=== PATIENT | female | born 1970 | race Two or more races ===

== ENCOUNTER 2016-12-26 09:09 | Emergency (ER) | payer OTHER ==
[2016-12-26 09:31] VITALS: BMI 31.8
--- NOTE | 2016-12-26 09:35 | PDOC ---
History of Present Illness - General History Source: Patient Exam Limitations: No Limitations - History of Present Illness Initial Comments: 12/26/16 10:05 The patient is a 46 year old female with a significant past medical history of hypertension, lumbar disc disease, and s/p [place] distal LAD dissection in Aug 2014 (on Aspirin), who is brought by EMS and presents to the ER with back pain for several hours. Patient states she woke up today in her usual state of health. She states she had a sudden onset of right lower back pain shooting down the right leg. Patient states she fell today as a result of being unstable on her right leg. She says she was unable to move her right foot. She also reports feeling pain in the right rivera, where she previously had surgery three years ago. Patient denies taking any pain medication. Denies chest pain, shortness of breath Denies nausea, vomiting Denies paresthesia, numbness Denies abdominal pain Denies dizziness Denies loss of consciousness <Alix Wilkerson - Last Filed: 12/26/16 12:03> <Shayla Braxton - Last Filed: 12/26/16 15:57> - General Chief Complaint: Lightheaded Stated Complaint: DIZZINESS Time Seen by Provider: 12/26/16 09:30 Past History <Alix Wilkerson - Last Filed: 12/26/16 12:03> - Past Medical History Cardiac Disorders: Yes ([place]) Psychiatric Problems: Yes (Major Depressive Disorder) Other medical history: Lumbar disc disorder, varicose veins - Psycho/Social/Smoking Cessation Hx Anxiety: No Suicidal Ideation: No Smoking Status: No Smoking History: Never smoked Have you smoked in the past 12 months: No Number of Cigarettes Smoked Daily: 0 Information on smoking cessation initiated: No Hx Alcohol Use: No Drug/Substance Use Hx: No Substance Use Type: None <Shayla Braxton - Last Filed: 12/26/16 15:57> - Past Medical History Allergies/Adverse Reactions: Allergies Allergy/AdvReac Type Severity Reaction Status Date / Time No Known Allergies Allergy Verified 12/26/16 09:21 Home Medications: Ambulatory Orders Aspirin [ASA -] 81 mg PO DAILY #30 tab.chew 07/18/15 Metoprolol Tartrate 25 mg PO DAILY 07/18/15 Methocarbamol [Robaxin -] 500 mg PO BID PRN #14 tablet 12/26/16 Tramadol HCl 50 mg PO Q6H PRN #12 tablet MDD 4 tabs 12/26/16 Review of Systems - Review of Systems Able to Perform ROS?: Yes Comments:: 12/26/16 10:05 GENERAL/CONSTITUTIONAL: No fever or chills. No weakness. HEAD, EYES, EARS, NOSE AND THROAT: No change in vision. No ear pain or discharge. No sore throat. CARDIOVASCULAR: No chest pain or shortness of breath. RESPIRATORY: No cough, wheezing, or hemoptysis. GASTROINTESTINAL: No nausea, vomiting, diarrhea or constipation. GENITOURINARY: No dysuria, frequency, or change in urination. MUSCULOSKELETAL: (+) Back pain and right leg pain/weakness. (+) Right rivera pain. No joint or muscle swelling or pain. No neck. SKIN: No rash NEUROLOGIC: No headache, vertigo, loss of consciousness, or change in strength/ sensation. ENDOCRINE: No increased thirst. No abnormal weight change. HEMATOLOGIC/LYMPHATIC: No anemia, easy bleeding, or history of blood clots. ALLERGIC/IMMUNOLOGIC: No hives or skin allergy. <Uts,Alix - Last Filed: 12/26/16 12:03> *Physical Exam - Vital Signs Last Vital Signs Temp Pulse Resp BP Pulse Ox 97.8 F 69 17 116/85 100 12/26/16 09:17 12/26/16 09:17 12/26/16 09:17 12/26/16 09:17 12/26/16 09:17 <Uts,Alix - Last Filed: 12/26/16 12:03> - Vital Signs Last Vital Signs Temp Pulse Resp BP Pulse Ox 97.8 F 69 17 116/85 100 12/26/16 09:17 12/26/16 09:17 12/26/16 09:17 12/26/16 09:17 12/26/16 09:17 - Physical Exam Comments: GENERAL: Awake, alert, and fully oriented, in no acute distress HEAD: No signs of trauma EYES: PERRLA, EOMI, sclera anicteric, conjunctiva clear ENT: Auricles normal inspection, hearing grossly normal, nares patent, oropharynx clear without exudates. Moist mucosa NECK: Normal ROM, supple, no lymphadenopathy, JVD, or masses LUNGS: Breath sounds equal, clear to auscultation bilaterally. No wheezes, and no crackles HEART: Regular rate and rhythm, normal S1 and S2, no murmurs, rubs or gallops ABDOMEN: Soft, nontender, normoactive bowel sounds. No guarding, no rebound. No masses EXTREMITIES: Normal range of motion, no edema. No clubbing or cyanosis. No cords, erythema, or tenderness NEUROLOGICAL: Cranial nerves II through XII grossly intact. Normal speech, normal gait. Sensation and motor to BLE intact. SKIN: Warm, Dry, normal turgor, no rashes. +Well-healed scar to R rivera, lower portion. SPINE: +Midline tenderness to L1-3, with soft tissue tenderness to R paraspinal lumbar region. <Shayla Braxton - Last Filed: 12/26/16 15:57> ED Treatment Course - LABORATORY CBC & Chemistry Diagram: 12/26/16 09:51 12/26/16 09:51 - RADIOLOGY Radiograph Interpretation: 12/26/16 12:04 Lumbar Spine XR impression reported by Dr. Dav Benítez: No acute pathology <Alix Wilkerson - Last Filed: 12/26/16 12:03> - LABORATORY CBC & Chemistry Diagram: 12/26/16 09:51 12/26/16 09:51 <Shayla Braxton - Last Filed: 12/26/16 15:57> Medical Decision Making - Medical Decision Making 12/26/16 12:08 Pt reassessed. She states she has some relief of pain, but incomplete. I offered additional medication, however, she declined, stating she would rather not take anymore medication. She asked to rest for an hour and recheck. 12/26/16 13:02 Pt ate lunch. Sitting in bed after eating lunch, stating she felt better. Stable for DC home. <Shayla Braxton - Last Filed: 12/26/16 15:57> *DC/Admit/Observation/Transfer - Attestations Scribe Attestion: 12/26/16 10:07 Documentation prepared by Alix Wilkerson, acting as biomedical engineering director for Shayla Braxton MD. <Alix Wilkerson - Last Filed: 12/26/16 12:03> - Discharge Dispostion Admit: No <Shayla Braxton - Last Filed: 12/26/16 15:57> Diagnosis at time of Disposition: Sciatica, right side - Discharge Dispostion Disposition: HOME Condition at time of disposition: Improved - Prescriptions Prescriptions: Methocarbamol [Robaxin -] 500 mg PO BID PRN #14 tablet PRN Reason: Muscle Spasms Tramadol HCl 50 mg PO Q6H PRN #12 tablet MDD 4 tabs PRN Reason: Pain - Referrals Referrals: Jarett Terry MD [Staff Physician] - - Patient Instructions Printed Discharge Instructions: DI for Back Pain With Sciatica Print Language: INDIAN
[2016-12-26] MEDS ORDERED: traMADol HCL 50 MG TABLET PO ONE (09:50)
[2016-12-26 09:59] LABS: BASOPHIL 0.9 % (0-2.0); EOSINOPHIL 3.4 % (0-4.5); MCH 28.9 pg (25.7-33.7); MCHC 33.6 g/dl (32.0-36.0); MEAN CELL VOLUME 86.1 fl (80-96); MEAN PLT VOLUME 7.4 fl (7.5-11.1); NEUTROPHILS 63.7 % (42.8-82.8); PLATELET COUNT 312 K/MM3 (134-434); RDW 13.4 % (11.6-15.6); WHITE BLOOD COUNT 7.5 K/mm3 (4.0-10.0)
[2016-12-26 10:07] LABS: URINE APPEARANCE CLEAR; URINE BILIRUBIN NEGATIVE (NEGATIVE); URINE BLOOD NEGATIVE (NEGATIVE); URINE COLOR LTYELLOW; URINE GLUCOSE (UA) NEGATIVE (NEGATIVE); URINE KETONE NEGATIVE (NEGATIVE); URINE LEUK ESTERASE NEGATIVE (NEGATIVE); URINE NITRITE NEGATIVE (NEGATIVE); URINE PROTEIN NEGATIVE (NEGATIVE); URINE UROBILINOGEN NEGATIVE E.U./dl (0.2-1.0)
[2016-12-26] MEDS ORDERED: traMADol HCL 50 MG TABLET ONE (10:19)
[2016-12-26] MEDS ORDERED: METHOCARBAMOL 500 MG TABLET PO ONE (10:23)
[2016-12-26 10:24] LABS: ALBUMIN 3.6 g/dl (3.4-5.0); ANION GAP 4 (8-16); BILIRUBIN,TOTAL 0.3 mg/dL (0.2-1.0); CALCIUM 8.8 mg/dL (8.5-10.1); CO2 31 mmol/L (21-32); COCKROFT - GAULT 132.1835; CREATININE 0.7 mg/dL (0.55-1.02); GLUCOSE,RANDOM 81 mg/dL (74-106); SGOT/AST 13 U/L (15-37); SGPT/ALT 21 U/L (12-78)
[2016-12-26 10:26] LABS: ALK PHOS 115 U/L (45-117); TROPONIN I < 0.02 ng/ml (0.00-0.05)
[2016-12-26] MEDS ORDERED: METHOCARBAMOL 500 MG TABLET ONE (10:29)
[2016-12-26 10:44] LABS: INR 0.97 (0.82-1.09); PROTHROMBIN TIME (PATIENT) 10.7 SEC (9.98-11.88)
[2016-12-26 13:09] VITALS: BP 112/73; PULSE 82; TEMP 98.6
--- NOTE | 2016-12-26 19:16 | EKG ---
Test Reason : Blood Pressure : / mmHG Vent. Rate : 065 BPM Atrial Rate : 065 BPM P-R Int : 160 ms QRS Dur : 084 ms QT Int : 380 ms P-R-T Axes : 055 042 026 degrees QTc Int : 395 ms NORMAL SINUS RHYTHM CANNOT RULE OUT ANTERIOR INFARCT , AGE UNDETERMINED ABNORMAL ECG WHEN COMPARED WITH ECG OF 18-JUL-2015 12:19, NO SIGNIFICANT CHANGE WAS FOUND Confirmed by RAYMON COTTON MD ([id number]) on 12/26/2016 7:16:10 PM Referred By: Confirmed By:RAYMON COTTON MD
== END 2016-12-26 13:14 | disposition home or self-care (01) ==
LOC: JER 09:09
DX: M54.41 Lumbago with sciatica, right side (principal); M51.36 Other intervertebral disc degeneration, lumbar region; I10 Essential (primary) hypertension; I25.2 Old myocardial infarction
CPT/HCPCS: 36415; 72100-TC; 80053; 81003; 82550; 84484; 84703; 85025; 85610; 93005; 93010; 99284-25

== ENCOUNTER 2019-07-04 14:47 | Emergency (ER) | payer OTHER ==
[2019-07-04 14:59] VITALS: TEMP 97.8; BMI 33.6
--- NOTE | 2019-07-04 15:02 | PDOC ---
Rapid Medical Evaluation Chief Complaint: Syncope/Near Syncope Time Seen by Provider: 07/04/19 14:51 Medical Evaluation: Allergies Allergy/AdvReac Type Severity Reaction Status Date / Time No Known Allergies Allergy Verified 12/26/16 09:21 07/04/19 14:58 I have performed a brief in-person evaluation of this patient. The patient presents with a chief complaint of: h/o multiple cardiac morbidities including aortic dissection BIBA due to found to have syncopal episode after having argument with landlord this afternoon. EMS report did EKG in brown which was normal. report h/o anxiety. EMS report much improvement now from when picked up pt. EMS report pt was found face down on the floor and neighbor called EMS Pertinent physical exam findings: A&Ox 3 in NAD. heart RRR.. lungs CTAB I have ordered the following: EKG, CBC, cardiac profile The patient will proceed to the ED for further evaluation. Discharge Disposition - Diagnosis Syncope and collapse - Discharge Dispostion Condition at time of disposition: Stable - Referrals - Patient Instructions - Post Discharge Activity
[2019-07-04 15:23] LABS: BASO % 0.6 % (0-2.0); EOS % 1.1 % (0-4.5); HEMATOCRIT 37.7 % (32.4-45.2); HEMOGLOBIN 12.4 GM/dL (10.7-15.3); LYMPH % 20.7 % (8-40); MCH 28.6 pg (25.7-33.7); MCHC 32.8 g/dl (32.0-36.0); MEAN CELL VOLUME 87.1 fl (80-96); MEAN PLT VOLUME 7.6 fl (7.5-11.1); NEUT % 70.6 % (42.8-82.8); PLATELET COUNT 368 K/MM3 (134-434); RBC 4.33 M/mm3 (3.60-5.2); RDW 13.9 % (11.6-15.6); WHITE BLOOD COUNT 9.9 K/mm3 (4.0-10.0)
--- NOTE | 2019-07-04 16:38 | PDOC ---
History of Present Illness - General Chief Complaint: Syncope/Near Syncope Stated Complaint: DIFFICULTY BREATHING Time Seen by Provider: 07/04/19 14:51 History Source: Patient, Family - History of Present Illness Initial Comments: 07/04/19 17:07 Patient is a 48 year old female with PMH of HTN and [place] s/p LAD dissection (2014 ) BIBEMS s/p syncope. Pt had an argument with her landlord this morning. After the confrontation, she was walking back to her apartment and had chest pain, palpitations, lightheadedness and fell on to the ground hitting her head. Fall was witnessed by other tenants. Reports LOC for 25 minutes. States that she urinated herself. No seizures. In the ER, pt complains of headache, point tenderness in C5/C6, midsternal chest pain but improving from before, and pain around her R eye. No focal neurologic deficits, weakness, numbness, AMS, confusion. She denies a history of falls or similar episodes. States she has been compliant with her meds (metoprolol 25mg daily, asa 81mg) PCP: Dr. Mejia Allergies: NKDA PMH: as per HPI 07/04/19 18:15 07/04/19 18:19 Past History - Past Medical History Allergies/Adverse Reactions: Allergies Allergy/AdvReac Type Severity Reaction Status Date / Time No Known Allergies Allergy Verified 07/04/19 14:59 Home Medications: Ambulatory Orders Aspirin [ASA -] 81 mg PO DAILY #30 tab.chew 07/18/15 Metoprolol Tartrate 25 mg PO DAILY 07/18/15 Bisacodyl [Dulcolax -] 5 mg PO DAILY 05/31/18 Diclofenac Sodium [Voltaren] 2 gm TP TID PRN #3 tube 05/31/18 Pantoprazole Sodium [Protonix -] 40 mg PO DAILY 05/31/18 Zolpidem Tartrate [Ambien] 10 mg PO HS 05/31/18 Amitriptyline HCl [Elavil -] 25 mg PO HS #30 tablet 06/30/18 Cyclobenzaprine HCl [Flexeril -] 10 mg PO TID #90 tablet MDD 3 06/30/18 Ergocalciferol [Vitamin D2] 50,000 unit PO Q7D@1000 #4 capsule 06/30/18 Lidocaine HCl [Aspercreme] 76.5 gm TP TID PRN #1 tube 06/30/18 Asthma: No Cancer: No Cardiac Disorders: Yes ([place] 2014) COPD: No Diabetes: No GI Disorders: No Disorders: No HTN: Yes Hypercholesterolemia: No Liver Disease: No Psychiatric Problems: Yes (Major Depressive Disorder) Seizures: No Thyroid Disease: No - Surgical History Abdominal Surgery: Yes (2104 gastric sleeve) - Immunization History Immunization Up to Date: Yes - Psycho Social/Smoking Cessation Hx Smoking Status: No Smoking History: Never smoked Have you smoked in the past 12 months: No Number of Cigarettes Smoked Daily: 0 Information on smoking cessation initiated: No Hx Alcohol Use: No Drug/Substance Use Hx: No Substance Use Type: None Hx Substance Use Treatment: No Review of Systems - Review of Systems Able to Perform ROS?: Yes Constitutional: No: Symptoms Reported, See HPI, Chills, Diaphoresis, Fever, Loss of Appetite, Malaise, Night Sweats, Weakness, Weight Stable, Unintentional Wgt. Loss, Unexplained wgt Loss, Other HEENTM: Yes: Eye Pain. No: Symptoms Reported, See HPI, Blurred Vision, Tearing , Recent change in vision, Double Vision, Cataracts, Ear Pain, Ocular Prothesis , Ear Discharge, Nose Pain, Nose Congestion, Tinnitus, Nose Bleeding, Hearing Loss, Throat Pain, Throat Swelling, Mouth Pain, Dental Problems, Difficulty Swallowing, Mouth Swelling, Other Respiratory: No: Symptoms reported, See HPI, Cough, Orthopnea, Shortness of Breath, SOB with Exertion, SOB at Rest, Stridor, Wheezing, Productive cough, Hemoptysis, Other Cardiac (ROS): Yes: Chest Pain, Lightheadedness, Palpitations. No: Symptoms Reported, See HPI, Edema, Irregular Heart Rate, Syncope, Chest Tightness, Other ABD/GI: No: Symptoms Reported, See HPI, Abdominal Distended, Abd. Pain w/ defecation, Blood Streaked Bowels, Constipated, Diarrhea, Difficulty Swallowing , Nausea, Poor Appetite, Poor Fluid Intake, Rectal Bleeding, Vomiting, Indigestion, Abdominal cramping, Tarry Stools, Other Musculoskeletal: Yes: Neck Pain. No: Symptoms Reported, See HPI, Back Pain, Gout, Joint Pain, Joint Swelling, Muscle Pain, Muscle Weakness, Joint Stiffness , Other Neurological: Yes: Headache. No: Numbness, Seizure, Weakness, Dizziness *Physical Exam - Vital Signs Last Vital Signs Temp Pulse Resp BP Pulse Ox 97.8 F 79 20 136/62 97 07/04/19 14:50 07/04/19 14:50 07/04/19 14:50 07/04/19 14:50 07/04/19 14:50 - Physical Exam General Appearance: Yes: Nourished, Mild Distress. No: Appropriately Dressed, Apparent Distress HEENT: positive: EOMI, KRYSTIN, Normal ENT Inspection, Normal Voice, Symmetrical Neck: positive: Tender, Supple Respiratory/Chest: positive: Lungs Clear, Normal Breath Sounds. negative: Chest Tender, Respiratory Distress, Wheezing Cardiovascular: positive: Regular Rhythm, Regular Rate, S1, S2. negative: Edema , JVD, Murmur Vascular Pulses: Dorsalis-Pedis (R): 2+, Doralis-Pedis (L): 2+ Musculoskeletal: positive: Vertebral Tenderness Extremity: positive: Normal Capillary Refill, Normal Inspection. 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 negative: Facial Droop, Numbness, Sensory Deficit ED Treatment Course - LABORATORY CBC & Chemistry Diagram: 07/04/19 15:18 07/04/19 15:18 - ADDITIONAL ORDERS Additional order review: Laboratory Results 07/04/19 15:18 Creatine Kinase 78 Troponin I < 0.02 07/04/19 15:18 RBC 4.33 MCV 87.1 MCHC 32.8 RDW 13.9 MPV 7.6 Neutrophils % 70.6 Lymphocytes % 20.7 Monocytes % 7.0 Eosinophils % 1.1 Basophils % 0.6 - RADIOLOGY Radiology Studies Ordered: Category Date Time Status CERVICAL SPINE CT W/O CONTR [CT] Stat CT Scan 07/04/19 16:[address] WITHOUT CONTRAST [CT] Stat CT Scan 07/04/19 16:34 Ordered CHEST PA & LAT [RAD] Stat Radiology 07/04/19 16:34 Ordered Medical Decision Making - Medical Decision Making 07/04/19 17:26 Heart Score: 5 Syncopal/ACS workup >> EKG, Trops >> CT head/c-spine >> CBC, CMP, CXR 07/04/19 18:33 EKG is normal sinus rhythm at 72 bpm, QTC is normal at 405, there is 1 inverted T wave in lead III otherwise there are no changes in this EKG since the prior EKG done on January 25, [address] head/c-spine: no acute fracture/pathology 07/04/19 18:45 Discharge - Discharge Information Problems reviewed: Yes Clinical Impression/Diagnosis: Syncope and collapse Condition: Stable Disposition: AGAINST MEDICAL ADVICE - Admission Yes - Follow up/Referral - Patient Discharge Instructions - Post Discharge Activity
[2019-07-04 17:01] LABS: ALBUMIN 3.8 g/dl (3.4-5.0); ALK PHOS 123 U/L (45-117); ANION GAP 8 MMOL/L (8-16); BILIRUBIN,TOTAL 0.2 mg/dL (0.2-1); CHLORIDE 106 mmol/L (98-107); CO2 25 mmol/L (21-32); CREATININE 0.7 mg/dL (0.55-1.3); GLUCOSE,RANDOM 99 mg/dL (74-106); POTASSIUM 4.5 mmol/L (3.5-5.1); SGOT/AST 18 U/L (15-37); SGPT/ALT 26 U/L (13-61); SODIUM 139 mmol/L (136-145); TOT PROT 7.5 g/dl (6.4-8.2)
--- NOTE | 2019-07-04 17:23 | PDOC ---
Documentation entered by Dustin Weber SCRIBE, acting as scribe for Cristina Denson MD. Cristina Denson MD: This documentation has been prepared by the Gus shukla Daniel, SCRIBE, under my direction and personally reviewed by me in its entirety. I confirm that the documentation accurately reflects all work, treatment, procedures, and medical decision making performed by me. Attending Attestation - Resident Resident Name: Gabriela Girard - ED Attending Attestation I have performed the following: I have examined & evaluated the patient, The case was reviewed & discussed with the resident, I agree w/resident's findings & plan, Exceptions are as noted - HPI HPI: 07/04/19 17:39 48 yo female had a verbal disagreement with her landlord and reportedly fainted. she had a history of CAD with distal LAD blockage and [place] - Physicial Exam PE: 07/04/19 17:41 wnwd 48 yo female s/p syncopal episode head ncat no scalp lacerations neck supple lungs cta b/l cvs [id number] no rubs no gallops no murmers abd nontender extremities no deformities neuro axox3,ambuatory - Medical Decision Making 07/04/19 17:22 EKG is normal sinus rhythm at 72 bpm, QTC is normal at 405, there is 1 inverted T wave in lead III otherwise there are no changes in this EKG since the prior EKG done on January 25, 2017 First troponin is negative 07/04/19 17:26 Chest x-ray no acute pulmonary disease, normal mediastinum, no infiltrates no consolidation or effusions
--- NOTE | 2019-07-04 19:12 | PN ---
Teaching Attending Note Name of Resident: Veronika Gomez ATTENDING PHYSICIAN STATEMENT I saw and evaluated the patient. I reviewed the resident's note and discussed the case with the resident. I agree with the resident's findings and plan as documented. SUBJECTIVE: Patient is a 48 year old woman with a PMH of Major depressive disorder, Gastric sleeve, HTN and [place] s/p LAD dissection (2014) brought by EMS after a syncopal episode. After an argument with her landlord this morning, she was walking back to her apartment and had chest pain, palpitations, lightheadedness and fell on to the ground hitting her head. Fall was witnessed by other tenants. Reports LOC for 25 minutes. States that she urinated on herself but no seizures. In the ER, she complains of headache, point tenderness in C5/C6, midsternal chest pain but improving from before, and pain around her R eye. No focal neurologic deficits, weakness, numbness, AMS, confusion. She denies a history of falls or similar episodes. States she has been compliant with her medications ( Metoprolol 25mg daily, ASA 81mg). Denies alcohol, tobacco or illicit drug use. No sick contacts or recent travel. OBJECTIVE: Alert Vital Signs Period Temp Pulse Resp BP Sys/Loaiza Pulse Ox Last 24 Hr 97.8 F 79 20 136/62 97 HEENT: No Jaundice, eye redness or discharge, PERRLA, EOMI. Normocephalic, atraumatic. External ears are normal and hearing is grossly intact. No nasal discharge. Neck: Supple, nontender. No palpable adenopathy or thyromegaly. No JVD Chest: Good effort. Clear to auscultation and percussion. Heart: Regular. No S3, rub or murmur Abdomen: Not distended, soft, nontender and no HSM. No rebound or guarding. Normal bowel sounds. Ext: Peripheral pulses intact. No leg edema. Skin: Warm and dry. No petechiae, rash or ecchymosis. Neuro: Alert. Oriented x3. CN 2-12 grossly intact. Sensation grossly intact in all four extremities and DTR are symmetric. Psych: Appropriate mood and affect. Good insight. Home Medications Medication Instructions Recorded Aspirin [ASA -] 81 mg PO DAILY #30 tab.chew 07/18/15 Metoprolol Tartrate 25 mg PO DAILY 07/18/15 Bisacodyl [Dulcolax -] 5 mg PO DAILY 05/31/18 Diclofenac Sodium [Voltaren] 2 gm TP TID PRN #3 tube 05/31/18 Pantoprazole Sodium [Protonix -] 40 mg PO DAILY 05/31/18 Zolpidem Tartrate [Ambien] 10 mg PO HS 05/31/18 Amitriptyline HCl [Elavil -] 25 mg PO HS #30 tablet 06/30/18 Cyclobenzaprine HCl [Flexeril -] 10 mg PO TID #90 tablet MDD 3 06/30/18 Ergocalciferol [Vitamin D2] 50,000 unit PO Q7D@1000 #4 capsule 06/30/18 Lidocaine HCl [Aspercreme] 76.5 gm TP TID PRN #1 tube 06/30/18 Abnormal Lab Results 07/04/19 15:18 BUN 19.0 H Alkaline Phosphatase 123 H ASSESSMENT AND PLAN: 1. Syncope - No acute abnormality on head CT and CXR. C-spine CT showed straightening of cervical spine, moderate lymphadenopathy nd no acute fracture or subluxation, Will continue comprehensive care for all of patients comorbid conditions. 2. Obesity Counseled on the risks associated with obesity. Will provide patient all the necessary assistance, counseling and positive reinforcement to facilitate weight loss. Consult beater worker helper. 3. Hypertension - Restart suitable outpatient antihypertensive drugs when clinically appropriate. Revise regimen to ensure [id number] excellent BP control and recreational counselor patient on the injurious effects of uncontrolled hypertension. Nonpharmacologic measures to control hypertension like weight loss , salt restriction and exercise discussed. Importance of adherence to treatment regimen and attainment of normotension emphasized. 4. DVT prophylaxis - Lovenox 40 mg SQ q 24 hours. 5. Advance directives - Full code
--- NOTE | 2019-07-04 19:27 | HP ---
CHIEF COMPLAINT: PCP: HISTORY OF PRESENT ILLNESS: ER course was notable for: (1) (2) (3) Recent Travel: PAST MEDICAL HISTORY: PAST SURGICAL HISTORY: Social History: Smoking: Alcohol: Drugs: Allergies No Known Allergies Allergy (Verified 07/04/19 14:59) HOME MEDICATIONS: Home Medications Medication Instructions Recorded Aspirin [ASA -] 81 mg PO DAILY #30 tab.chew 07/18/15 Metoprolol Tartrate 25 mg PO DAILY 07/18/15 Bisacodyl [Dulcolax -] 5 mg PO DAILY 05/31/18 Diclofenac Sodium [Voltaren] 2 gm TP TID PRN #3 tube 05/31/18 Pantoprazole Sodium [Protonix -] 40 mg PO DAILY 05/31/18 Zolpidem Tartrate [Ambien] 10 mg PO HS 05/31/18 Amitriptyline HCl [Elavil -] 25 mg PO HS #30 tablet 06/30/18 Cyclobenzaprine HCl [Flexeril -] 10 mg PO TID #90 tablet MDD 3 06/30/18 Ergocalciferol [Vitamin D2] 50,000 unit PO Q7D@1000 #4 capsule 06/30/18 Lidocaine HCl [Aspercreme] 76.5 gm TP TID PRN #1 tube 06/30/18 REVIEW OF SYSTEMS CONSTITUTIONAL: Absent: fever, chills, diaphoresis, generalized weakness, malaise, loss of appetite, weight change HEENT: Absent: rhinorrhea, nasal congestion, throat pain, throat swelling, difficulty swallowing, mouth swelling, ear pain, eye pain, visual changes CARDIOVASCULAR: Absent: chest pain, syncope, palpitations, irregular heart rate, lightheadedness , peripheral edema RESPIRATORY: Absent: cough, shortness of breath, dyspnea with exertion, orthopnea, wheezing, stridor, hemoptysis GASTROINTESTINAL: Absent: abdominal pain, abdominal distension, nausea, vomiting, diarrhea, constipation, melena, hematochezia GENITOURINARY: Absent: dysuria, frequency, urgency, hesitancy, hematuria, flank pain, genital pain MUSCULOSKELETAL: Absent: myalgia, arthralgia, joint swelling, back pain, neck pain SKIN: Absent: rash, itching, pallor HEMATOLOGIC/IMMUNOLOGIC: Absent: easy bleeding, easy bruising, lymphadenopathy, frequent infections ENDOCRINE: Absent: unexplained weight gain, unexplained weight loss, heat intolerance, cold intolerance NEUROLOGIC: Absent: headache, focal weakness or paresthesias, dizziness, unsteady gait, seizure, mental status changes, bladder or bowel incontinence PSYCHIATRIC: Absent: anxiety, depression, suicidal or homicidal ideation, hallucinations. PHYSICAL EXAMINATION Vital Signs - 24 hr 07/04/19 14:50 Temperature 97.8 F Pulse Rate 79 Respiratory 20 Rate Blood Pressure 136/62 O2 Sat by Pulse 97 Oximetry (%) GENERAL: Awake, alert, and fully oriented, in no acute distress. HEAD: Normal with no signs of trauma. EYES: Pupils equal, round and reactive to light, extraocular movements intact, sclera anicteric, conjunctiva clear. No lid lag. EARS, NOSE, THROAT: Ears normal, nares patent, oropharynx clear without exudates. Moist mucous membranes. NECK: Normal range of motion, supple without lymphadenopathy, JVD, or masses. LUNGS: Breath sounds equal, clear to auscultation bilaterally. No wheezes, and no crackles. No accessory muscle use. HEART: Regular rate and rhythm, normal S1 and S2 without murmur, rub or gallop. ABDOMEN: Soft, nontender, not distended, normoactive bowel sounds, no guarding, no rebound, no masses. No hepatomegaly or splenomegaly. MUSCULOSKELETAL: Normal range of motion at all joints. No bony deformities or tenderness. No CVA tenderness. UPPER EXTREMITIES: 2+ pulses, warm, well-perfused. No cyanosis. No clubbing. No peripheral edema. LOWER EXTREMITIES: 2+ pulses, warm, well-perfused. No calf tenderness. No peripheral edema. NEUROLOGICAL: Cranial nerves II-XII intact. Normal speech. Normal gait. PSYCHIATRIC: Cooperative. Good eye contact. Appropriate mood and affect. SKIN: Warm, dry, normal turgor, no rashes or lesions noted, normal capillary refill. Laboratory Results - last 24 hr 07/04/19 07/04/19 15:18 15:18 WBC 9.9 RBC 4.33 Hgb 12.4 Hct 37.7 MCV 87.1 MCH 28.6 MCHC 32.8 RDW 13.9 Plt Count 368 MPV 7.6 Absolute Neuts (auto) 7.0 Neutrophils % 70.6 Lymphocytes % 20.7 Monocytes % 7.0 Eosinophils % 1.1 Basophils % 0.6 Nucleated RBC % 0 Sodium 139 Potassium 4.5 Chloride 106 Carbon Dioxide 25 Anion Gap 8 BUN 19.0 H Creatinine 0.7 Est GFR (CKD-EPI)AfAm 120.43 Est GFR (CKD-EPI)NonAf 103.90 Random Glucose 99 Calcium 10.0 Total Bilirubin 0.2 AST 18 ALT 26 Alkaline Phosphatase 123 H Creatine Kinase 78 Troponin I < 0.02 Total Protein 7.5 Albumin 3.8 ASSESSMENT/PLAN: ATTENDING PHYSICIAN STATEMENT I saw and evaluated the patient. I reviewed the resident's note and discussed the case with the resident. I agree with the resident's findings and plan as documented. SUBJECTIVE: OBJECTIVE: ASSESSMENT AND PLAN:
[2019-07-04 20:56] VITALS: BP 146/68; PULSE 76
--- NOTE | 2019-07-05 10:24 | EKG ---
Test Reason : Blood Pressure : / mmHG Vent. Rate : 076 BPM Atrial Rate : 076 BPM P-R Int : 150 ms QRS Dur : 080 ms QT Int : 358 ms P-R-T Axes : 046 042 027 degrees QTc Int : 402 ms NORMAL SINUS RHYTHM NORMAL ECG WHEN COMPARED WITH ECG OF 26-DEC-2016 09:20, NO SIGNIFICANT CHANGE WAS FOUND Confirmed by ZANDER SWEENEY MD ([id number]) on 07/05/2019 10:23:41 AM Referred By: Confirmed By:ZANDER SWEENEY MD
== END 2019-07-04 20:00 | disposition left against medical advice (07) ==
LOC: JER 14:47 → UNDOADMOB 19:04 → JERBED 19:04 → UNDODISOB 20:56
DX: R55 Syncope and collapse (principal); Z59.2 Discord with neighbors, lodgers and landlord; I25.10 Atherosclerotic heart disease of native coronary artery without angina pectoris; I10 Essential (primary) hypertension; I25.2 Old myocardial infarction; F32.89 Other specified depressive episodes; F41.9 Anxiety disorder, unspecified
CPT/HCPCS: 36415; 70450-TC; 71046-TC-FY; 72125-TC; 80053; 82550; 84484; 85025; 93005; 93010; 99283-25; G0378

== ENCOUNTER 2020-06-21 19:05 | Emergency (ER) | payer OTHER ==
[2020-06-21 19:18] VITALS: BP 109/57; PULSE 89; TEMP 98; BMI 34.2
[2020-06-21] MEDS ORDERED: ACETAMINOPHEN 1000 MG/100 ML VIAL (NON FORMULARY) IVPB ONE (20:04)
[2020-06-21] MEDS ORDERED: SODIUM CHLORIDE 1,000 ML IV STA (20:04)
[2020-06-21] MEDS ORDERED: ONDANSETRON 4 MG/2 ML VIAL IVPUSH ONE (20:04)
[2020-06-21] MEDS ORDERED: ACETAMINOPHEN INJECTION 100 ML IVPB ONE (20:14)
[2020-06-21] MEDS ORDERED: ONDANSETRON 4 MG/2 ML VIAL ONE (20:14)
[2020-06-21 20:49] LABS: BASO % 0.8 % (0-2.0); EOS % 3.1 % (0-4.5); HEMATOCRIT 41.2 % (32.4-45.2); HEMOGLOBIN 13.3 GM/dL (10.7-15.3); LYMPH % 32.7 % (8-40); MCH 27.9 pg (25.7-33.7); MCHC 32.2 g/dl (32.0-36.0); MEAN CELL VOLUME 86.8 fl (80-96); MEAN PLT VOLUME 7.7 fl (7.5-11.1); MONO % 8.5 % (3.8-10.2); NEUT % 54.9 % (42.8-82.8); PLATELET COUNT 443 K/MM3 (134-434); RBC 4.75 M/mm3 (3.60-5.2); RDW 13.7 % (11.6-15.6); WHITE BLOOD COUNT 11.2 K/mm3 (4.0-10.0)
[2020-06-21 20:51] LABS: HCG,QUALITATIVE URINE Negative
[2020-06-21 20:53] LABS: EPI CELLS 17 /uL (0-25.1); HYALINE CASTS 3 /uL (0-3.1); URINE APPEARANCE CLEAR; URINE BACTERIA 751 /uL (0-1359); URINE BILIRUBIN NEGATIVE (NEGATIVE); URINE COLOR YELLOW; URINE GLUCOSE (UA) NEGATIVE (NEGATIVE); URINE KETONE NEGATIVE (NEGATIVE); URINE LEUK ESTERASE TRACE (NEGATIVE); URINE NITRITE NEGATIVE (NEGATIVE); URINE PROTEIN NEGATIVE (NEGATIVE); URINE RBC 6 /uL (0-23.9); URINE WBC 7 /uL (0-25.8)
[2020-06-21 21:11] LABS: POTASSIUM 4.2 mmol/L (3.5-5.1)
[2020-06-21 21:13] LABS: CALCIUM 9.5 mg/dL (8.5-10.1)
[2020-06-21 21:14] LABS: ALBUMIN 3.8 g/dl (3.4-5.0); BLOOD UREA NITROGEN 16.7 mg/dL (7-18); MAGNESIUM 2.3 mg/dL (1.8-2.4)
[2020-06-21 21:17] LABS: CREATININE 0.8 mg/dL (0.55-1.3)
[2020-06-21 21:18] LABS: BILIRUBIN,TOTAL 0.2 mg/dL (0.2-1)
[2020-06-21 21:19] LABS: TOT PROT 7.9 g/dl (6.4-8.2)
== END 2020-06-21 23:15 | disposition home or self-care (01) ==
LOC: JER 19:05
PROC: 3E0333Z Introduction of Anti-inflammatory into Peripheral Vein, Percutaneous Approach (ICD-10-PCS; principal; 2020-06-21)
PROC: 3E033GC Introduction of Other Therapeutic Substance into Peripheral Vein, Percutaneous Approach (ICD-10-PCS; 2020-06-21)
PROC: 3E0337Z Introduction of Electrolytic and Water Balance Substance into Peripheral Vein, Percutaneous Approach (ICD-10-PCS; 2020-06-21)
DX: R10.11 Right upper quadrant pain (principal)
CPT/HCPCS: 36415; 70450-TC; 74177-TC; 80053; 81003; 83690; 83735; 84703; 85025; 87086; 99285-25; J0131; Q9967

== ENCOUNTER 2021-10-13 16:40 | Emergency (ER) | payer OTHER ==
[2021-10-13 16:58] VITALS: TEMP 98.6; BMI 35.6
[2021-10-13] MEDS ORDERED: ACETAMINOPHEN 1000 MG/100 ML BAG IVPB ONE (18:24)
[2021-10-13] MEDS ORDERED: SODIUM CHLORIDE 1,000 ML IV STA (18:24)
[2021-10-13] MEDS ORDERED: ONDANSETRON 4 MG/2 ML VIAL IVPUSH ONE (18:24)
[2021-10-13] MEDS ORDERED: ONDANSETRON 4 MG/2 ML VIAL ONE (18:36)
[2021-10-13] MEDS ORDERED: ACETAMINOPHEN INJECTION 100 ML IVPB ONE (18:36)
[2021-10-13 19:18] LABS: BASO % 0.4 % (0-2.0); EOS % 3.6 % (0-4.5); HEMATOCRIT 36.5 % (32.4-45.2); HEMOGLOBIN 12.3 GM/dL (10.7-15.3); LYMPH % 38.1 % (8-40); MCH 27.6 pg (25.7-33.7); MCHC 33.7 g/dl (32.0-36.0); MEAN CELL VOLUME 81.8 fl (80-96); MEAN PLT VOLUME 7.3 fl (7.5-11.1); MONO % 7.8 % (3.8-10.2); NEUT % 50.1 % (42.8-82.8); PH,URINE 5.5 (5.0-8.0); PLATELET COUNT 436 10^3/uL (134-434); RBC 4.45 M/mm3 (3.60-5.2); RDW 13.8 % (11.6-15.6); URINE APPEARANCE CLEAR; URINE BILIRUBIN NEGATIVE (NEGATIVE); URINE COLOR YELLOW; URINE GLUCOSE (UA) NEGATIVE (NEGATIVE); URINE KETONE NEGATIVE (NEGATIVE); URINE LEUK ESTERASE NEGATIVE (NEGATIVE); URINE NITRITE NEGATIVE (NEGATIVE); URINE PROTEIN NEGATIVE (NEGATIVE); URINE UROBILINOGEN 0.2 mg/dL (0.2-1.0); WHITE BLOOD COUNT 8.1 K/mm3 (4.0-10.0)
[2021-10-13 19:35] LABS: CALCIUM 9.5 mg/dL (8.5-10.1)
[2021-10-13 19:36] LABS: ALBUMIN 3.7 g/dl (3.4-5.0); BLOOD UREA NITROGEN 11.7 mg/dL (7-18)
[2021-10-13 19:39] LABS: CREATININE 0.6 mg/dL (0.55-1.3)
[2021-10-13 19:40] LABS: BILIRUBIN,TOTAL 0.2 mg/dL (0.2-1); TOT PROT 7.4 g/dl (6.4-8.2)
[2021-10-13 23:55] VITALS: BP 121/78; PULSE 78
== END 2021-10-13 23:56 | disposition home or self-care (01) ==
LOC: JER 16:40
PROC: 3E033GC Introduction of Other Therapeutic Substance into Peripheral Vein, Percutaneous Approach (ICD-10-PCS; principal; 2021-10-13)
DX: R11.2 Nausea with vomiting, unspecified (principal); R10.30 Lower abdominal pain, unspecified
CPT/HCPCS: 36415; 74177-TC; 80053; 81003; 83690; 84484; 85025; 87077; 87086; 93005; 93010; 99285-25; Q9967

== ENCOUNTER 2021-12-27 09:24 | Emergency (ER) | payer OTHER ==
[2021-12-27 10:14] VITALS: TEMP 98; BMI 35.0
[2021-12-27] MEDS ORDERED: ACETAMINOPHEN 1000 MG/100 ML BAG IVPB ONE (10:22)
[2021-12-27] MEDS ORDERED: LACTATED RINGERS SOLUTION 1000 ML INFUS.BAG IV ONE (10:22)
[2021-12-27] MEDS ORDERED: MAG HYDROX/AL HYDROX/SIMETH -MYLANTA- ORAL SUSPENSION PO ONE (10:23)
[2021-12-27] MEDS ORDERED: FAMOTIDINE 20 MG/50 ML IVPB 20 MG/50 ML MG IVPB ONE ×2 (10:23→10:43)
[2021-12-27] MEDS ORDERED: MAG HYDROX/AL HYDROX/SIMETH 30 ML UNIT-DOSE CUP ONE (10:42)
[2021-12-27] MEDS ORDERED: ACETAMINOPHEN INJECTION 100 ML IVPB ONE (10:42)
[2021-12-27 12:01] LABS: BASO % 0.9 % (0-2.0); EOS % 2.8 % (0-4.5); HEMATOCRIT 38.1 % (32.4-45.2); HEMOGLOBIN 12.6 GM/dL (10.7-15.3); LYMPH % 31.7 % (8-40); MCH 27.5 pg (25.7-33.7); MEAN CELL VOLUME 83.3 fl (80-96); MEAN PLT VOLUME 7.5 fl (7.5-11.1); MONO % 6.2 % (3.8-10.2); NEUT % 58.4 % (42.8-82.8); PLATELET COUNT 425 10^3/uL (134-434); RBC 4.57 M/mm3 (3.60-5.2); RDW 14.4 % (11.6-15.6); WHITE BLOOD COUNT 7.8 K/mm3 (4.0-10.0)
[2021-12-27 12:07] LABS: URINE APPEARANCE CLEAR; URINE BILIRUBIN NEGATIVE (NEGATIVE); URINE COLOR YELLOW; URINE GLUCOSE (UA) NEGATIVE (NEGATIVE); URINE KETONE NEGATIVE (NEGATIVE); URINE LEUK ESTERASE NEGATIVE (NEGATIVE); URINE NITRITE NEGATIVE (NEGATIVE); URINE PROTEIN NEGATIVE (NEGATIVE); URINE UROBILINOGEN 0.2 mg/dL (0.2-1.0)
[2021-12-27 12:14] LABS: INR 1.01 (0.83-1.09); PROTHROMBIN TIME (PATIENT) 11.6 SEC (9.7-13.0)
[2021-12-27 12:17] LABS: ACTIVATED PTT 35.4 SECONDS (25.2-36.5)
[2021-12-27 12:27] LABS: CALCIUM 9.5 mg/dL (8.5-10.1)
[2021-12-27 12:29] LABS: ALBUMIN 3.5 g/dl (3.4-5.0); BLOOD UREA NITROGEN 11.3 mg/dL (7-18)
[2021-12-27 12:32] LABS: CREATININE 0.6 mg/dL (0.55-1.3)
[2021-12-27 12:33] LABS: BILIRUBIN,TOTAL 0.4 mg/dL (0.2-1); TOT PROT 7.3 g/dl (6.4-8.2)
[2021-12-27 13:39] VITALS: BP 124/64; PULSE 69
== END 2021-12-27 13:39 | disposition home or self-care (01) ==
LOC: JER 09:24
PROC: 3E0333Z Introduction of Anti-inflammatory into Peripheral Vein, Percutaneous Approach (ICD-10-PCS; principal; 2021-12-27)
PROC: 3E033GC Introduction of Other Therapeutic Substance into Peripheral Vein, Percutaneous Approach (ICD-10-PCS; 2021-12-27)
DX: R10.9 Unspecified abdominal pain (principal)
CPT/HCPCS: 36415; 71045-TC-FY; 74176-TC; 76705-TC; 80053; 81003; 83690; 84484; 85025; 85610; 85730; 86850; 86900; 86901; 87086; 93005; 93010; 99285-25

== ENCOUNTER → 2024-04-19 | Day surgery (SDC) | payer OTHER | END | disposition home or self-care (01) | LOC: JRADUS-SUR 08:51 | PROVIDERS: ATTEND Family Medicine | PROC: 0HBU3ZX Excision of Left Breast, Percutaneous Approach, Diagnostic (ICD-10-PCS; principal; 2024-04-19) | DX: N60.22 Fibroadenosis of left breast (principal) | CPT/HCPCS: 19083; 76942-TC; 77065-TC; 87899; 88305-TC; A4648 ==

== ENCOUNTER → 2025-01-29 | Day surgery (SDC) | payer OTHER | END | disposition home or self-care (01) | LOC: JRADUS-SUR 10:25 | PROVIDERS: ATTEND Registered Nurse | PROC: BH01ZZZ Plain Radiography of Left Breast (ICD-10-PCS; principal; 2025-01-29) | DX: N64.89 Other specified disorders of breast (principal) | CPT/HCPCS: 19281; A4648; 77066-TC; G0279-TC ==